=== PATIENT | male | born 1965 | race Caucasian/White ===

== ENCOUNTER 2018-04-19 02:52 | Observation (INO) | payer OTHER ==
[2018-04-19] MEDS ORDERED: SODIUM CHLORIDE 1,000 ML IV SCH ×3 (03:30→08:00)
--- NOTE | 2018-04-19 03:37 | PDOC ---
History of Present Illness - General History Source: Patient Exam Limitations: No Limitations - History of Present Illness Initial Comments: 04/19/18 03:42 The patient is a 52 year old male with no significant PMH who presents to the emergency department for evaluation of food impaction. The patient states he was eating buffalo chicken without bones last night and felt like a piece became stuck in his throat. The patient states he feels like he spits up liquid PO including water and soda. He denies difficulty breathing or throat swelling. The patient denies history of food impaction. The patient denies receiving an endoscopy in the past. The patient denies chest pain, shortness of breath, headache and dizziness. Denies fever, chills, nausea, vomit, diarrhea and constipation. Denies dysuria, frequency, urgency and hematuria. Allergies: NKA Past surgical history: None reported. Social history: No reported cigarette, alcohol, or drug use. PCP: None reported. <Mendoza Crisostomo - Last Filed: 04/19/18 03:42> - General History Source: Patient Exam Limitations: No Limitations <Mendoza La - Last Filed: 04/19/18 06:53> <Jeanne Raya - Last Filed: 04/19/18 07:36> - General Chief Complaint: Foreign Body (FB) Stated Complaint: FOOD LODGED IN THROAT Time Seen by Provider: 04/19/18 03:13 Past History <Mendoza Crisostomo - Last Filed: 04/19/18 03:42> - Suicide/Smoking/Psychosocial Hx Smoking History: Never smoked Have you smoked in the past 12 months: No Information on smoking cessation initiated: No Hx Alcohol Use: No Drug/Substance Use Hx: No <Mendoza La - Last Filed: 04/19/18 06:53> <Jeanne Raya - Last Filed: 04/19/18 07:36> - Past Medical History Allergies/Adverse Reactions: Allergies Allergy/AdvReac Type Severity Reaction Status Date / Time No Known Allergies Allergy Verified 04/19/18 03:21 Home Medications: Ambulatory Orders NK [No Known Home Medication] 04/19/18 Review of Systems - Review of Systems Able to Perform ROS?: Yes Comments:: 04/19/18 03:42 GENERAL/CONSTITUTIONAL: No fever or chills. No weakness. HEAD, EYES, EARS, NOSE AND THROAT: No change in vision. No ear pain or discharge. No sore throat. CARDIOVASCULAR: No chest pain or shortness of breath. RESPIRATORY: No cough, wheezing, or hemoptysis. GASTROINTESTINAL: (+) Food bolus lodged in throat. No nausea, vomiting, diarrhea or constipation. GENITOURINARY: No dysuria, frequency, or change in urination. MUSCULOSKELETAL: No joint or muscle swelling or pain. No neck or back pain. SKIN: No rash NEUROLOGIC: No headache, vertigo, loss of consciousness, or change in strength/ sensation. ENDOCRINE: No increased thirst. No abnormal weight change. HEMATOLOGIC/LYMPHATIC: No anemia, easy bleeding, or history of blood clots. ALLERGIC/IMMUNOLOGIC: No hives or skin allergy. <Mendoza Crisostomo - Last Filed: 04/19/18 03:42> *Physical Exam - Vital Signs Last Vital Signs Temp Pulse Resp BP Pulse Ox 98.4 F 66 19 126/98 99 04/19/18 03:12 04/19/18 03:12 04/19/18 03:12 04/19/18 03:12 04/19/18 03:12 - Physical Exam Comments: 04/19/18 03:38 GENERAL: Awake, alert, and fully oriented, in no acute distress HEAD: No signs of trauma EYES: PERRLA, EOMI, sclera anicteric, conjunctiva clear ENT: Oropharynx clear without exudates. Auricles normal inspection, hearing grossly normal, nares patent, Moist mucosa NECK: Normal ROM, supple, no lymphadenopathy, JVD, or masses LUNGS: Breath sounds equal, clear to auscultation bilaterally. No wheezes, and no crackles HEART: Regular rate and rhythm, normal S1 and S2, no murmurs, rubs or gallops ABDOMEN: Soft, nontender, normoactive bowel sounds. No guarding, no rebound. No masses EXTREMITIES: Normal range of motion, no edema. No clubbing or cyanosis. No cords, erythema, or tenderness NEUROLOGICAL: Cranial nerves II through XII intact. 5/5 strength in upper and lower extremities. Sensation intact. No pronator drift. Normal speech, normal gait SKIN: Warm, Dry, normal turgor, no rashes or lesions noted. <Mendoza Crisostomo - Last Filed: 04/19/18 03:42> - Vital Signs Last Vital Signs Temp Pulse Resp BP Pulse Ox 98.4 F 66 19 126/98 99 04/19/18 03:12 04/19/18 03:12 04/19/18 03:12 04/19/18 03:12 04/19/18 03:12 <Mendoza La - Last Filed: 04/19/18 06:53> - Vital Signs Last Vital Signs Temp Pulse Resp BP Pulse Ox 98.4 F 68 17 130/74 100 04/19/18 03:12 04/19/18 06:20 04/19/18 06:20 04/19/18 06:20 04/19/18 06:20 <Jeanne Raya - Last Filed: 04/19/18 07:36> ED Treatment Course - LABORATORY CBC & Chemistry Diagram: 04/19/18 03:35 04/19/18 03:35 <Mendoza La - Last Filed: 04/19/18 06:53> - LABORATORY CBC & Chemistry Diagram: 04/19/18 03:35 04/19/18 03:35 - ADDITIONAL ORDERS Additional order review: Laboratory Results 04/19/18 04/19/18 04/19/18 03:35 03:35 03:35 PT with INR 11.00 INR 0.97 PTT (Actin FS) 19.3 L Sodium 141 Potassium 4.3 Chloride 109 H Carbon Dioxide 23 Anion Gap 9 BUN 16 Creatinine 1.0 Creat Clearance w eGFR > 60 Random Glucose 108 H Calcium 8.9 Total Bilirubin 1.0 AST 24 ALT 38 Alkaline Phosphatase 65 Total Protein 7.8 Albumin 4.4 Blood Type O POSITIVE Antibody Screen Negative 04/19/18 03:35 RBC 5.34 MCV 85.5 MCHC 34.8 RDW 13.0 MPV 8.6 Neutrophils % 57.4 Lymphocytes % 28.6 Monocytes % 8.4 Eosinophils % 4.9 H Basophils % 0.7 - Medications Given in the ED: ED Medications Discontinued Medications Generic Name Dose Route Start Last Admin Trade Name Freq PRN Reason Stop Dose Admin Glucagon 1 mg 04/19/18 03:45 04/19/18 04:11 Glucagon - IVPUSH 04/19/18 03:46 1 mg ONCE ONE Administration Glucagon 1 mg 04/19/18 05:01 04/19/18 05:15 Glucagon - IVPUSH 04/19/18 05:02 1 mg ONCE ONE Administration Ondansetron HCl 4 mg 04/19/18 03:45 04/19/18 04:11 Zofran Injection IVPB 04/19/18 03:46 4 mg ONCE ONE Administration Ondansetron HCl 4 mg 04/19/18 05:01 04/19/18 05:15 Zofran Injection IVPB 04/19/18 05:02 4 mg ONCE ONE Administration <Jeanne Raya - Last Filed: 04/19/18 07:36> Medical Decision Making - Medical Decision Making 04/19/18 03:35 A portion of this note was documented by scribe services under my direction. I have reviewed the details of the note, within reason, and agree with the documentation with the following case summary and management plan written by me. Patient treated in the ED. Nursing notes are reviewed and incorporated into the medical decision-making. Vital signs reviewed. Peripheral IV access obtained by the nurse, laboratory studies are drawn and sent, reviewed and interpreted by myself. Vital Signs Temp Pulse Resp BP Pulse Ox 98.4 F 66 19 126/98 99 04/19/18 03:12 04/19/18 03:12 04/19/18 03:12 04/19/18 03:12 04/19/18 03:12 52-year-old male with no past medical history presents with food impaction. The patient went to have a buffalo chicken without bones. No swelling in last night but states feels like it stuck in his throat. Denies difficulty breathing. Patient attempted to drink soda and water but states that he feels like he spitting it all up. First-time episode. Never had an endoscopy. Came to the ER for further evaluation. Patient has food bolus impaction. We'll attempt to medically manage it with glucagon. If the medical management does not work, we'll consult GI for endoscopy. Imaging unlikely to be helpful given that this is chicken without bones. 04/19/18 06:53 CBC, BMP 04/19/18 03:35 04/19/18 03:35 CMP Sodium 141 mmol/L (136-145) 04/19/18 03:35 Potassium 4.3 mmol/L (3.5-5.1) 04/19/18 03:35 Chloride 109 mmol/L (98-107) H 04/19/18 03:35 Carbon Dioxide 23 mmol/L (21-32) 04/19/18 03:35 Anion Gap 9 (8-16) 04/19/18 03:35 BUN 16 mg/dL (7-18) 04/19/18 03:35 Creatinine 1.0 mg/dL (0.7-1.3) 04/19/18 03:35 Creat Clearance w eGFR > 60 (>60) 04/19/18 03:35 Random Glucose 108 mg/dL (74-106) H 04/19/18 03:35 Calcium 8.9 mg/dL (8.5-10.1) 04/19/18 03:35 Total Bilirubin 1.0 mg/dL (0.2-1.0) 04/19/18 03:35 AST 24 U/L (15-37) 04/19/18 03:35 ALT 38 U/L (12-78) 04/19/18 03:35 Alkaline Phosphatase 65 U/L (45-117) 04/19/18 03:35 Total Protein 7.8 g/dl (6.4-8.2) 04/19/18 03:35 Albumin 4.4 g/dl (3.4-5.0) 04/19/18 03:35 Despite several doses of glucagon, pt still continues to have the symptoms. Case discussed with DR. Bradford. Patient will be placed NPO and placed on schedule for endoscopy today. Will admit patient to hospital. <Mendoza La - Last Filed: 04/19/18 06:53> *DC/Admit/Observation/Transfer - Attestations Scribe Attestion: 04/19/18 03:42 Documentation prepared by Mendoza Crisostomo, acting as medical pathologist for Mendoza La MD. <Mendoza Crisostomo - Last Filed: 04/19/18 03:42> <Mendoza La - Last Filed: 04/19/18 06:53> - Discharge Dispostion Decision to Admit order: Yes <Jeanne Raya - Last Filed: 04/19/18 07:36> Diagnosis at time of Disposition: Food impaction of esophagus Qualifiers: Encounter type: initial encounter Qualified Code(s): T18.128A - Food in esophagus causing other injury, initial encounter - Discharge Dispostion Condition at time of disposition: Stable
[2018-04-19 03:45] LABS: BASO % 0.7 % (0-2.0); EOS % 4.9 % (0-4.5); HEMATOCRIT 45.7 % (35.4-49); HEMOGLOBIN 15.9 GM/dL (11.7-16.9); LYMPH % 28.6 % (8-40); MCH 29.7 pg (25.7-33.7); MCHC 34.8 g/dl (32.0-35.9); MEAN CELL VOLUME 85.5 fl (80-96); MEAN PLT VOLUME 8.6 fl (7.5-11.1); MONO % 8.4 % (3.8-10.2); NEUT % 57.4 % (42.8-82.8); PLATELET COUNT 200 K/MM3 (134-434); RBC 5.34 M/mm3 (4.00-5.60); WHITE BLOOD COUNT 7.5 K/mm3 (4.0-10.0)
[2018-04-19] MEDS ORDERED: GLUCAGON 1 MG KIT IVPUSH ONE ×2 (03:45→05:01)
[2018-04-19] MEDS ORDERED: ONDANSETRON 4 MG/2 ML VIAL IVPB ONE ×2 (03:45→05:01)
[2018-04-19 03:59] LABS: INR 0.97 (0.82-1.09)
[2018-04-19 04:01] LABS: ACTIVATED PTT 19.3 SECONDS (26.9-34.4)
[2018-04-19 04:09] LABS: ALBUMIN 4.4 g/dl (3.4-5.0); ALK PHOS 65 U/L (45-117); ANION GAP 9 (8-16); BLOOD UREA NITROGEN 16 mg/dL (7-18); CALCIUM 8.9 mg/dL (8.5-10.1); CHLORIDE 109 mmol/L (98-107); CO2 23 mmol/L (21-32); GLUCOSE,RANDOM 108 mg/dL (74-106); SGPT/ALT 38 U/L (12-78); SODIUM 141 mmol/L (136-145); TOT PROT 7.8 g/dl (6.4-8.2)
[2018-04-19 04:11] LABS: POTASSIUM 4.3 mmol/L (3.5-5.1); SGOT/AST 24 U/L (15-37)
[2018-04-19] MEDS ORDERED: GlUCAGON HUMAN RECOMBINANT 1 MG/VIAL ONE ×2 (04:13→05:17)
[2018-04-19] MEDS ORDERED: ONDANSETRON 4 MG/2 ML VIAL ONE ×2 (04:14→05:17)
--- NOTE | 2018-04-19 07:51 | HP ---
CHIEF COMPLAINT: " I ate chicken and it got stuck in my throat" PCP: No PCP. Hasn't seen a doctor since > 10 yrs. HISTORY OF PRESENT ILLNESS: Patient is a 52 year old male drove himself to the ED with the chief complaint of food stuck in his throat. As per the patient, he was apparently well until 7:30 pm last night, when he took a bite of buffalo chicken wings (without the bone) and felt that it got stuck in his throat. He states he tried to drink water, soda, soft food, but it was difficult for him to swallow even his own saliva. This has never happened to him before. Hence he came in to the ED for further evaluation and treatment. Denies difficulty in breathing, closing of throat, drooling of saliva, sob, chest pain, palpitation, cough, abdominal pain, nausea or vomiting. Has been spitting his saliva as he says it hurts when he swallows or takes a sip of water. Bowel/Bladder/Sleep/Appetite normal prior to this event. Has never done a colonoscopy or an endoscopy in the past. ER course was notable for: (1) Afebrile, hemodynamically stable, CBC, CMP normal (2) EKG: NSR; Qtc 460 (3) IV NS @ 83 mls/hr; Glucagon Recent Travel: None PAST MEDICAL HISTORY: None PAST SURGICAL HISTORY: None OCCUPATION: [employer]. Social History: Smoking: Denies Alcohol: Occasional Drugs: Denies Family History: Non contributory Allergies No Known Allergies Allergy (Verified 04/19/18 03:21) HOME MEDICATIONS: Home Medications Medication Instructions Recorded NK [No Known Home Medication] 04/19/18 REVIEW OF SYSTEMS CONSTITUTIONAL: Absent: fever, chills, diaphoresis, generalized weakness, malaise, loss of appetite, weight change HEENT: Present: throat pain,difficulty swallowing, Absent: rhinorrhea, nasal congestion, throat swelling, mouth swelling, ear pain, eye pain, visual changes CARDIOVASCULAR: Absent: chest pain, syncope, palpitations, irregular heart rate, lightheadedness , peripheral edema RESPIRATORY: Absent: cough, shortness of breath, dyspnea with exertion, orthopnea, wheezing, stridor, hemoptysis GASTROINTESTINAL: Absent: abdominal pain, abdominal distension, nausea, vomiting, diarrhea, constipation, melena, hematochezia GENITOURINARY: Absent: dysuria, frequency, urgency, hesitancy, hematuria, flank pain, genital pain MUSCULOSKELETAL: Absent: myalgia, arthralgia, joint swelling, back pain, neck pain SKIN: Absent: rash, itching, pallor HEMATOLOGIC/IMMUNOLOGIC: Absent: easy bleeding, easy bruising, lymphadenopathy, frequent infections ENDOCRINE: Absent: unexplained weight gain, unexplained weight loss, heat intolerance, cold intolerance NEUROLOGIC: Absent: headache, focal weakness or paresthesias, dizziness, unsteady gait, seizure, mental status changes, bladder or bowel incontinence PSYCHIATRIC: Absent: anxiety, depression, suicidal or homicidal ideation, hallucinations. PHYSICAL EXAMINATION Vital Signs - 24 hr 04/19/18 04/19/18 04/19/18 03:12 06:20 07:15 Temperature 98.4 F 98.6 F Pulse Rate 66 Pulse Rate [ 68 63 Apical] Respiratory 19 17 18 Rate Blood Pressure 126/98 Blood Pressure 130/74 132/83 [Right Arm] O2 Sat by Pulse 99 100 100 Oximetry (%) GENERAL: Young male, sitting comfortably in bed, Awake, alert, and fully oriented, in no acute distress, spitting his saliva. HEAD: Normal with no signs of trauma. EYES: EOM intact, no pallor or icterus. EARS, NOSE, THROAT: Ears normal, oropharynx clear, no foreign body visualized, airway patent. Moist mucous membranes. NECK: Supple, no JVD. LUNGS: Breath sounds equal, clear to auscultation bilaterally. No wheezes, and no crackles. No accessory muscle use. HEART: Regular rate and rhythm, normal S1 and S2 without murmur. ABDOMEN: Soft, nontender, not distended, normoactive bowel sounds, no guarding, no rebound, no masses. No hepatomegaly or splenomegaly. MUSCULOSKELETAL: Normal range of motion at all joints. No bony deformities or tenderness. No CVA tenderness. UPPER EXTREMITIES: 2+ pulses, warm, well-perfused. No cyanosis. No clubbing. No peripheral edema. LOWER EXTREMITIES: 2+ pulses, warm, well-perfused. No calf tenderness. No peripheral edema. NEUROLOGICAL: No facial droop, Cranial nerves II-XII intact. Normal speech. Gait not observed. PSYCHIATRIC: Cooperative. Good eye contact. Appropriate mood and affect. SKIN: Warm, dry, normal turgor, no rashes or lesions noted, normal capillary refill. Laboratory Results - last 24 hr 04/19/18 04/19/18 04/19/18 03:35 03:35 03:35 WBC 7.5 RBC 5.34 Hgb 15.9 Hct 45.7 MCV 85.5 MCH 29.7 MCHC 34.8 RDW 13.0 Plt Count 200 MPV 8.6 Absolute Neuts (auto) 4.3 Neutrophils % 57.4 Lymphocytes % 28.6 Monocytes % 8.4 Eosinophils % 4.9 H Basophils % 0.7 Nucleated RBC % 0 PT with INR 11.00 INR 0.97 PTT (Actin FS) 19.3 L Sodium 141 Potassium 4.3 Chloride 109 H Carbon Dioxide 23 Anion Gap 9 BUN 16 Creatinine 1.0 Creat Clearance w eGFR > 60 Random Glucose 108 H Calcium 8.9 Total Bilirubin 1.0 AST 24 ALT 38 Alkaline Phosphatase 65 Total Protein 7.8 Albumin 4.4 Blood Type Antibody Screen 04/19/18 03:35 WBC RBC Hgb Hct MCV MCH MCHC RDW Plt Count MPV Absolute Neuts (auto) Neutrophils % Lymphocytes % Monocytes % Eosinophils % Basophils % Nucleated RBC % PT with INR INR PTT (Actin FS) Sodium Potassium Chloride Carbon Dioxide Anion Gap BUN Creatinine Creat Clearance w eGFR Random Glucose Calcium Total Bilirubin AST ALT Alkaline Phosphatase Total Protein Albumin Blood Type O POSITIVE Antibody Screen Negative ASSESSMENT/PLAN: Patient is a 52 year old male with no significant past medical history, drove himself to the ED, with the chief complaint of "food stuck in his throat". # Food impaction in the throat Took a bite of chicken last night, has sensation of something stuck in his throat, doesn't have difficult in swallowing, drooling of saliva On exam, throat looks normal, no foreign body seen in the oropharynx. On arrival, he was afebrile, hemodynamically stable. Admit in Med-Surg/Observation Plan: Endoscopy today in the morning by Dr. Daniels. NPO IV NS @ 83 mls/hr Watch for symptoms like: difficulty in breathing, sob, drooling of saliva # FEN IV NS @ 83 mls/hr Electrolyes WNL NPO for an Endoscopy today at 3 pm # Prophylaxis For DVT: Early ambulation For GI: Not indicated # Code Status: Full Code # Dispo: Admitted in Med-Surg/Obs. Discharge planning as per Endoscopy report. Illness, Investigation and Plan of care explained to the patient. He verbalized understanding. Case to be discussed with Dr. Hills. Hospitalist Screening - Colonoscopy Questionnaire Colonoscopy Questionnaire: Colonoscopy Questionnaire
[2018-04-19 09:00] VITALS: BMI 32.8
--- NOTE | 2018-04-19 09:16 | CON.GI ---
Consult - Alcohol/Substance Use Hx Alcohol Use: No - Smoking History Smoking history: Never smoked Have you smoked in the past 12 months: No <Marina Del Valle - Last Filed: 04/19/18 09:16> Consult Specialty:: GI Reason for Consultation:: Food impaction since 8 pm last night - History of Present Illness History of Present Illness: A healthy 52 yo male with acute onset dysphagia while eating boneless buffalo wings last evening (8 pm). No prior history of food impaction, dysphasia, odynophagia, chronic GERD, asthma, postnasal drip, celiac, or allergies. Never had EGD. In ED @ 2 am, unable to sallow liquids, saliva. No significant improvement with Glucagone and soda. CXR negative. Ambulating, not in distress, or pain. No drooling, or dysphonia - History Source History Provided By: Patient <Oscar Daniels - Last Filed: 04/19/18 09:45> Home Medications <Marina Del Valle - Last Filed: 04/19/18 09:16> <Oscar Daniels - Last Filed: 04/19/18 09:45> - Allergies Allergies/Adverse Reactions: Allergies Allergy/AdvReac Type Severity Reaction Status Date / Time No Known Allergies Allergy Verified 04/19/18 03:21 - Home Medications Home Medications: Ambulatory Orders NK [No Known Home Medication] 04/19/18 Family Disease History - Family Disease History Family History: Unremarkable <Oscar Daniels - Last Filed: 04/19/18 09:45> Review of Systems Findings/Remarks: as per HPI, H&P <Oscar Daniels - Last Filed: 04/19/18 09:45> Physical Exam-GI Vital Signs: Vital Signs Temperature 98.2 F 04/19/18 08:55 Pulse Rate 65 04/19/18 08:55 Respiratory Rate 20 04/19/18 08:55 Blood Pressure 136/75 04/19/18 08:55 O2 Sat by Pulse Oximetry (%) 100 04/19/18 09:00 Labs: CBC, BMP 04/19/18 03:35 04/19/18 03:35 INR, PTT INR 0.97 (0.82-1.09) 04/19/18 03:35 <Marina Del Valle - Last Filed: 04/19/18 09:16> Vital Signs: Vital Signs Temperature 98.2 F 04/19/18 08:55 Pulse Rate 65 04/19/18 08:55 Respiratory Rate 20 04/19/18 08:55 Blood Pressure 136/75 04/19/18 08:55 O2 Sat by Pulse Oximetry (%) 100 04/19/18 09:00 Constitutional: Yes: Well Nourished, No Distress, Calm Eyes: Yes: Conjunctiva Clear HENT: Yes: Atraumatic Neck: Yes: Supple Cardiovascular: Yes: Regular Rate and Rhythm Respiratory: Yes: Regular Gastrointestinal Inspection: No: Ascites, Distention ...Auscultate: Yes: Normoactive Bowel Sounds ...Palpate: Yes: Soft. No: Firm/Rigid, Guarding, Mass, Tenderness Neurological: Yes: Alert, Oriented Labs: CBC, BMP 04/19/18 03:35 04/19/18 03:35 INR, PTT INR 0.97 (0.82-1.09) 04/19/18 03:35 Laboratory Last Values WBC 7.5 K/mm3 (4.0-10.0) 04/19/18 03:35 RBC 5.34 M/mm3 (4.00-5.60) 04/19/18 03:35 Hgb 15.9 GM/dL (11.7-16.9) 04/19/18 03:35 Hct 45.7 % (35.4-49) 04/19/18 03:35 MCV 85.5 fl (80-96) 04/19/18 03:35 MCH 29.7 pg (25.7-33.7) 04/19/18 03:35 MCHC 34.8 g/dl (32.0-35.9) 04/19/18 03:35 RDW 13.0 % (11.9-15.9) 04/19/18 03:35 Plt Count 200 K/MM3 (134-434) 04/19/18 03:35 MPV 8.6 fl (7.5-11.1) 04/19/18 03:35 Absolute Neuts (auto) 4.3 # 04/19/18 03:35 Neutrophils % 57.4 % (42.8-82.8) 04/19/18 03:35 Lymphocytes % 28.6 % (8-40) 04/19/18 03:35 Monocytes % 8.4 % (3.8-10.2) 04/19/18 03:35 Eosinophils % 4.9 % (0-4.5) H 04/19/18 03:35 Basophils % 0.7 % (0-2.0) 04/19/18 03:35 Nucleated RBC % 0 % (0-0) 04/19/18 03:35 PT with INR 11.00 SEC (9.7-13.0) 04/19/18 03:35 INR 0.97 (0.82-1.09) 04/19/18 03:35 PTT (Actin FS) 19.3 SECONDS (26.9-34.4) L 04/19/18 03:35 Sodium 141 mmol/L (136-145) 04/19/18 03:35 Potassium 4.3 mmol/L (3.5-5.1) 04/19/18 03:35 Chloride 109 mmol/L (98-107) H 04/19/18 03:35 Carbon Dioxide 23 mmol/L (21-32) 04/19/18 03:35 Anion Gap 9 (8-16) 04/19/18 03:35 BUN 16 mg/dL (7-18) 04/19/18 03:35 Creatinine 1.0 mg/dL (0.7-1.3) 04/19/18 03:35 Creat Clearance w eGFR > 60 (>60) 04/19/18 03:35 Random Glucose 108 mg/dL (74-106) H 04/19/18 03:35 Calcium 8.9 mg/dL (8.5-10.1) 04/19/18 03:35 Total Bilirubin 1.0 mg/dL (0.2-1.0) 04/19/18 03:35 AST 24 U/L (15-37) 04/19/18 03:35 ALT 38 U/L (12-78) 04/19/18 03:35 Alkaline Phosphatase 65 U/L (45-117) 04/19/18 03:35 Total Protein 7.8 g/dl (6.4-8.2) 04/19/18 03:35 Albumin 4.4 g/dl (3.4-5.0) 04/19/18 03:35 Blood Type O POSITIVE 04/19/18 03:35 Antibody Screen Negative 04/19/18 03:35 <Oscar Daniels - Last Filed: 04/19/18 09:45> Imaging - Results X-ray: Report Reviewed <Oscar Daniels - Last Filed: 04/19/18 09:45> Problem List - Problems (1) Food impaction of esophagus Code(s): T18.128A - FOOD IN ESOPHAGUS CAUSING OTHER INJURY, INITIAL ENCOUNTER Qualifiers: Encounter type: initial encounter Qualified Code(s): T18.128A - Food in esophagus causing other injury, initial encounter <Oscar Daniels - Last Filed: 04/19/18 09:45> Assessment/Plan EGD now. Risks, Discussed with the patient, who agrees to proceeded. <Oscar Daniels - Last Filed: 04/19/18 09:45>
[2018-04-19] MEDS ORDERED: PROPOFOL 20 ML ONE (09:36)
[2018-04-19] MEDS ORDERED: SUCCINYLCHOLINE CHLORIDE 200 MG/10 ML VIAL ONE (09:37)
--- NOTE | 2018-04-19 10:11 | EKG ---
Test Reason : Blood Pressure : / mmHG Vent. Rate : 062 BPM Atrial Rate : 062 BPM P-R Int : 164 ms QRS Dur : 156 ms QT Int : 454 ms P-R-T Axes : 020 -44 006 degrees QTc Int : 460 ms NORMAL SINUS RHYTHM LEFT AXIS DEVIATION RIGHT BUNDLE BRANCH BLOCK ABNORMAL ECG NO PREVIOUS ECGS AVAILABLE Confirmed by GRETTA LIRA MD ([id number]) on 04/19/2018 10:11:43 AM Referred By: Confirmed By:GRETTA LIRA MD
--- NOTE | 2018-04-19 10:47 | PROC ---
Endoscopy Procedure Endoscopy procedure completed. Please see scanned procedure report. A large chunk of chicken meat was found lodged in the distal esophagus. It was removed piecemeal via cold snare and [place] basket. The esophageal mucosa appeared mostly intact. No ulcerations, or significant inflammation noted. Vertical furrows and rings noted however suggesting possible EE. Multiple biopsies taken. R/o EE. Follow as OP in 1 week for biopsies result.
[2018-04-19 11:01] VITALS: PULSE 64
--- NOTE | 2018-04-19 11:07 | PN ---
Teaching Attending Note Name of Resident: Dixie Beaulieu ATTENDING PHYSICIAN STATEMENT I saw and evaluated the patient. I reviewed the resident's note and discussed the case with the resident. I agree with the resident's findings and plan as documented. SUBJECTIVE: Patient is comfortable with no acute distress. Tolerated the lunch without any difficulty with swallowing. Denies dysphagia. OBJECTIVE: Vital Signs Temperature 98.6 F 04/19/18 10:26 Pulse Rate 64 04/19/18 10:56 Respiratory Rate 20 04/19/18 10:56 Blood Pressure 125/71 04/19/18 10:56 O2 Sat by Pulse Oximetry (%) 99 04/19/18 10:56 CBCD WBC 7.5 K/mm3 (4.0-10.0) 04/19/18 03:35 RBC 5.34 M/mm3 (4.00-5.60) 04/19/18 03:35 Hgb 15.9 GM/dL (11.7-16.9) 04/19/18 03:35 Hct 45.7 % (35.4-49) 04/19/18 03:35 MCV 85.5 fl (80-96) 04/19/18 03:35 MCHC 34.8 g/dl (32.0-35.9) 04/19/18 03:35 RDW 13.0 % (11.9-15.9) 04/19/18 03:35 Plt Count 200 K/MM3 (134-434) 04/19/18 03:35 MPV 8.6 fl (7.5-11.1) 04/19/18 03:35 CMP Sodium 141 mmol/L (136-145) 04/19/18 03:35 Potassium 4.3 mmol/L (3.5-5.1) 04/19/18 03:35 Chloride 109 mmol/L (98-107) H 04/19/18 03:35 Carbon Dioxide 23 mmol/L (21-32) 04/19/18 03:35 Anion Gap 9 (8-16) 04/19/18 03:35 BUN 16 mg/dL (7-18) 04/19/18 03:35 Creatinine 1.0 mg/dL (0.7-1.3) 04/19/18 03:35 Creat Clearance w eGFR > 60 (>60) 04/19/18 03:35 Random Glucose 108 mg/dL (74-106) H 04/19/18 03:35 Calcium 8.9 mg/dL (8.5-10.1) 04/19/18 03:35 Total Bilirubin 1.0 mg/dL (0.2-1.0) 04/19/18 03:35 AST 24 U/L (15-37) 04/19/18 03:35 ALT 38 U/L (12-78) 04/19/18 03:35 Alkaline Phosphatase 65 U/L (45-117) 04/19/18 03:35 Total Protein 7.8 g/dl (6.4-8.2) 04/19/18 03:35 Albumin 4.4 g/dl (3.4-5.0) 04/19/18 03:35 Current Medications Generic Name Dose Route Start Last Admin Trade Name Freq PRN Reason Stop Dose Admin Sodium Chloride 1,000 mls @ 100 mls/hr 04/19/18 08:00 Normal Saline - IV [facility] Home Medications Medication Instructions Recorded NK [No Known Home Medication] 04/19/18 PE: per resident's note Chest: CTA BL Heart:S1S2 positive, RRR Abdomen: soft, NT ASSESSMENT AND PLAN: This patient is a 52 year old male drove himself to the ED after having buffalo chicken wings stuck in his throat. Was given Glucagan to relax the smooth muscle. Patient went for EGD by and was found to have most likely EE. Bx was taken. Patient tolerated the diet, will follow with in a week , Bx result will discussed with the patient then.
[2018-04-19 11:33] VITALS: BP 118/77; TEMP 98.4
--- NOTE | 2018-04-19 12:11 | DS ---
Physical Exam: SUBJECTIVE: Patient seen and examined at bed side after the endoscopy. Complaining of mild SOB. Denies pain in the throat, drooling of saliva, chest pain, cough, palpitation, abdominal pain, nausea or vomiting. OBJECTIVE: Vital Signs Period Temp Pulse Resp BP Sys/Felix Pulse Ox Last 24 Hr 98.2 F-98.6 F 63-72 17-20 118-136/71-98 98-100 PHYSICAL EXAM GENERAL: Young male, sitting comfortably in bed, Awake, alert, and fully oriented, in no acute distress, spitting his saliva. HEAD: Normal with no signs of trauma. EYES: EOM intact, no pallor or icterus. EARS, NOSE, THROAT: Ears normal, oropharynx clear, no foreign body visualized, airway patent. Moist mucous membranes. NECK: Supple, no JVD. LUNGS: Breath sounds equal, clear to auscultation bilaterally. No wheezes, and no crackles. No accessory muscle use. HEART: Regular rate and rhythm, normal S1 and S2 without murmur. ABDOMEN: Soft, nontender, not distended, normoactive bowel sounds, no guarding, no rebound, no masses. No hepatomegaly or splenomegaly. MUSCULOSKELETAL: Normal range of motion at all joints. No bony deformities or tenderness. No CVA tenderness. UPPER EXTREMITIES: 2+ pulses, warm, well-perfused. No cyanosis. No clubbing. No peripheral edema. LOWER EXTREMITIES: 2+ pulses, warm, well-perfused. No calf tenderness. No peripheral edema. NEUROLOGICAL: No facial droop, Cranial nerves II-XII intact. Normal speech. Gait not observed. PSYCHIATRIC: Cooperative. Good eye contact. Appropriate mood and affect. SKIN: Warm, dry, normal turgor, no rashes or lesions noted, normal capillary refill. LABS Laboratory Results - last 24 hr 04/19/18 04/19/18 04/19/18 03:35 03:35 03:35 WBC 7.5 RBC 5.34 Hgb 15.9 Hct 45.7 MCV 85.5 MCH 29.7 MCHC 34.8 RDW 13.0 Plt Count 200 MPV 8.6 Absolute Neuts (auto) 4.3 Neutrophils % 57.4 Lymphocytes % 28.6 Monocytes % 8.4 Eosinophils % 4.9 H Basophils % 0.7 Nucleated RBC % 0 PT with INR 11.00 INR 0.97 PTT (Actin FS) 19.3 L Sodium 141 Potassium 4.3 Chloride 109 H Carbon Dioxide 23 Anion Gap 9 BUN 16 Creatinine 1.0 Creat Clearance w eGFR > 60 Random Glucose 108 H Calcium 8.9 Total Bilirubin 1.0 AST 24 ALT 38 Alkaline Phosphatase 65 Total Protein 7.8 Albumin 4.4 Blood Type Antibody Screen 04/19/18 03:35 WBC RBC Hgb Hct MCV MCH MCHC RDW Plt Count MPV Absolute Neuts (auto) Neutrophils % Lymphocytes % Monocytes % Eosinophils % Basophils % Nucleated RBC % PT with INR INR PTT (Actin FS) Sodium Potassium Chloride Carbon Dioxide Anion Gap BUN Creatinine Creat Clearance w eGFR Random Glucose Calcium Total Bilirubin AST ALT Alkaline Phosphatase Total Protein Albumin Blood Type O POSITIVE Antibody Screen Negative HOSPITAL COURSE: Date of Admission:04/19/18 Date of Discharge: 04/19/18 Patient is a 52 year old male with no significant past medical history, drove himself to the ED, with the chief complaint of "food stuck in his throat". As per the patient, he was apparently well until 7:30 pm last night, when he took a bite of buffalo chicken wings (without the bone) and felt that it got stuck in his throat. He states he tried to drink water, soda, soft food, but it was difficult for him to swallow even his own saliva. This has never happened to him before. Hence he came in to the ED for further evaluation and treatment. Denies difficulty in breathing, closing of throat, drooling of saliva, sob, chest pain, palpitation, cough, abdominal pain , nausea or vomiting. Had been spitting his saliva in the ED as he says it hurts when he swallows or takes a sip of water. Bowel/Bladder/Sleep/Appetite normal prior to this event. Has never done a colonoscopy or an endoscopy in the past. Hasn't seen a doctor since 10 yrs. On arrival, he was afebrile, hemodynamically stable, CBC and CMP was normal. Was given Glucagon but it didn't help. Endoscopy was done today.A large chunk of chicken meat was found lodged in the distal esophagus and was removed. Biopsies were taken. Patient tolerated well after the endoscopy. Patient has been advised to see Dr. Daniels in a week and f/up with biopsy result. Illness, Investigation and Plan of care explained to the patient. He verbalized understanding. Case discussed with Dr. Hills. Minutes to complete discharge: 45 Discharge Summary Reason For Visit: FOOD IMPACTION OF ESOPHAGUS Current Active Problems Food impaction of esophagus (Acute) Condition: Stable - Instructions Diet, Activity, Other Instructions: You were seen here due to your sore throat and you were found to have a chicken piece stuck in your throat. You received a scope to retrieve the piece and you received biopsies because some of the folds of your esophagus looked different than normal. MEDICATIONS: Remember to chew your food thoroughly Please maintain a soft food diet for the next few days In addition you will need a Pulmicort inhaler --TAKE ONE PUFF then IMMEDIATELY SWALLOW; do this twice daily --The reason is that this will help with inflammation of your esophagus --Please rinse your mouth with water afterwards, but do not swallow the water FOLLOW-UP: You should follow-up with a primary medical doctor to coordinate your health needs. Being that you have not seen a doctor in a while, you are more than welcome to be seen at the [facility] with Dr. Simmons and the hospital residents ([phone]) You should also follow-up with Dr. Daniels for your biopsy results in one week. Referrals: Yuniel Simmons MD [Staff Physician] - Oscar Daniels MD [Staff Physician] - Disposition: HOME - Home Medications Comprehensive Discharge Medication List: Ambulatory Orders Budesonide [Pulmicort Flexhaler] 90 mcg IH BID #1 [email or web address] 04/19/18
--- NOTE | 2018-04-22 16:06 | PATH ---
Surgical Pathology Report Patient Name: LULA ARRIAZA [facility]. Rec. #: [id number] /Age/Gender: 1965 (Age: 52) / M Account: [id number] Location: [address] [place] [address]/[facility] Taken: 04/19/2018 Received: 04/19/2018 Reported: 04/22/2018 Physicians: Oscar Daniels M.D. Specimen(s) Received A: BX 2ND PORTION DUODENUM B: BX ANTRUM AND BODY C: BX MID ESOPHAGUS Clinical History Foot impaction Final Diagnosis A. SECOND PORTION DUODENUM, BIOPSY: DUODENAL MUCOSA WITH MILD CHRONIC DUODENITIS. B. ANTRUM AND BODY, BIOPSY: GASTRIC MUCOSA WITH MILD CHRONIC GASTRITIS. IMMUNOSTAIN IS NEGATIVE FOR H. PYLORI ORGANISMS. C. MID ESOPHAGUS, BIOPSY: ESOPHAGEAL (SQUAMOUS) MUCOSA SHOWING ACUTE AND CHRONIC INFLAMMATION WITH FEW EOSINOPHILS INFILTRATE, CONSISTENT WITH REFLUX ESOPHAGITIS. SEPARATE SCANTY FRAGMENTS OF GASTRIC MUCOSA WITH NO DIAGNOSTIC ABNORMALITIES. PAS STAIN FAILED TO REVEAL FUNGAL HYPHAE. Electronically Signed Trae Mcdermott M.D. Gross Description A. Received in formalin, labeled "duodenum second portion biopsy" is two piece cornelius, irregular portion of soft tissue measuring 0.3 cm. in greatest dimension. The specimen is submitted in toto in one cassette. B. Received in formalin, labeled "antrum and body biopsy" is a cornelius, irregular portion of soft tissue measuring 0.4 cm. in greatest dimension. The specimen is submitted in toto in one cassette. C. Received in formalin, labeled "mid esophagus biopsy" is multiple cornelius, irregular portion of soft tissue measuring 0.4 cm. in greatest dimension. The specimen is submitted in toto in one cassette. ELÍAS/04/19/2018 yolande/04/19/2018
== END 2018-04-19 14:15 | disposition home or self-care (01) ==
LOC: JER 02:52 → JERBED 07:36 → J5S 09:08
PROVIDERS: ADMIT Internal Medicine; ATTEND Internal Medicine
PROC: 0DB98ZX Excision of Duodenum, Via Natural or Artificial Opening Endoscopic, Diagnostic (ICD-10-PCS; 2018-04-19)
PROC: 0DB68ZX Excision of Stomach, Via Natural or Artificial Opening Endoscopic, Diagnostic (ICD-10-PCS; 2018-04-19)
PROC: 0DB38ZX Excision of Lower Esophagus, Via Natural or Artificial Opening Endoscopic, Diagnostic (ICD-10-PCS; 2018-04-19)
PROC: 0DC38ZZ Extirpation of Matter from Lower Esophagus, Via Natural or Artificial Opening Endoscopic (ICD-10-PCS; principal; 2018-04-19 09:00)
DX: T18.128A Food in esophagus causing other injury, initial encounter (principal); K29.80 Duodenitis without bleeding; K21.0 Gastro-esophageal reflux disease with esophagitis; K29.30 Chronic superficial gastritis without bleeding; R13.19 Other dysphagia; X58.XXXA Exposure to other specified factors, initial encounter; Y93.89 Activity, other specified; Y92.9 Unspecified place or not applicable
CPT/HCPCS: 36415; 71046-TC-FY; 80053; 85025; 85610; 85730; 86850; 86900; 86901; 88305-TC; 88312-TC; 88342-TC; 93005; 93010; 99285-25; G0378; J7030